=== PATIENT | male | born 1955 | race Two or more races ===

== ENCOUNTER 2017-06-25 23:53 | Inpatient (IN) | payer MEDICAID, OTHER ==
[~2017-06-25] VITALS: Ht 167.6 cm; Wt 81.0 kg
[2017-06-26] VITALS (8 sets, daily range): BP systolic 109–136; BP diastolic 62–82; PULSE 71–85; RESP 18–21; TEMP 98; Ht 167.6 cm; Wt 81.0 kg
[2017-06-26] MEDS ORDERED: ONDANSETRON 4 MG INJ IV STA (00:56)
[2017-06-26] MEDS ORDERED: morphine 4 MG/ML VIAL IV STA (00:56)
[2017-06-26 01:18] LABS: BASOPHIL # 0.1 10^3/ul (0.0-0.1); EOSINOPHILS # 0.5 10^3/ul (0.0-0.5); EOSINOPHILS % 4.7 % (0.0-7.0); HEMATOCRIT 44.3 % (42.0-52.0); HEMOGLOBIN 14.7 g/dl (14.0-18.0); LYMPHOCYTES # 3.6 10^3/ul (0.8-2.9); LYMPHOCYTES % 33.6 % (15.0-51.0); MEAN CORPUSCULAR HEMOGLOBIN 30.1 pg (29.0-33.0); MEAN CORPUSCULAR HGB CONC 33.2 g/dl (32.0-37.0); MEAN CORPUSCULAR VOLUME 90.6 fl (82.0-101.0); MONOCYTE # 0.9 10^3/ul (0.3-0.9); MONOCYTES % 7.9 % (0.0-11.0); NEUTROPHILS % 52.6 % (39.0-77.0); PLATELET COUNT 219 10^3/UL (140-415); RED BLOOD COUNT 4.89 10^6/ul (4.70-6.10); RED CELL DISTRIBUTION WIDTH 11.9 % (11.5-14.5); WHITE BLOOD COUNT 10.8 10^3/ul (4.8-10.8)
[2017-06-26 01:32] LABS: INR 0.87; PROTIME 11.8 Sec (12.2-14.2); PT RATIO 0.9
[2017-06-26 01:33] LABS: PARTIAL THROMBOPLASTIN TIME 26.3 Sec (25.0-35.0)
[2017-06-26 01:41] LABS: ALANINE AMINOTRANSFERASE 25 IU/L (13-69); ALBUMIN 4.2 g/dl (3.3-4.9); ALBUMIN/GLOBULIN RATIO 1.27; ALKALINE PHOSPHATASE 57 IU/L (42-121); ANION GAP 20 (8-16); ASPARTATE AMINO TRANSFERASE 18 IU/L (15-46); BILIRUBIN,INDIRECT 0.1 mg/dl (0-1.1); BILIRUBIN,TOTAL 0.1 mg/dl (0.2-1.3); BLOOD UREA NITROGEN 19 mg/dl (7-20); CALCIUM 9.5 mg/dl (8.4-10.2); CARBON DIOXIDE 24 mmol/L (21-31); CHLORIDE 102 mmol/L (97-110); GLUCOSE 102 mg/dl (70-220); POTASSIUM 4.4 mmol/L (3.5-5.1); SODIUM 142 mmol/L (135-144); TOTAL PROTEIN 7.5 g/dl (6.1-8.1)
[2017-06-26 01:52] LABS: B-TYPE NATRIURETIC PEPTIDE 46 PG/ML (0-125)
--- NOTE | 2017-06-26 02:02 | RADRPT ---
PROCEDURE: XR Chest. CLINICAL INDICATION: Chest pain TECHNIQUE: AP Portable chest. COMPARISON: No pertinent prior examinations were submitted for comparison. FINDINGS: There is mild cardiomegaly. There is mild atelectasis at the left lung base. The osseous structure s are unremarkable. IMPRESSION: Mild atelectasis at the left lung base. RPTAT: HIKT .Felix Lyons MD, MD Date Time Electronically viewed and signed by .Felix Lyons MD, MD on 06/26/2017 02:01 .T/
[2017-06-26 02:03] LABS: TROPONIN-I < 0.012 ng/ml (0.00-0.12)
[2017-06-26] MEDS: HYDROCODONE/APAP (5/325) TAB PO PRN ×2 (04:50→22:46)
--- NOTE | 2017-06-26 05:28 | HP ---
Date/Time of Note Date/Time of Note DATE: 06/26/17 TIME: 05:22 Assessment/Plan VTE Prophylaxis VTE Prophylaxis Intervention: SCD's Lines/Catheters IV Catheter Type (from Nrsg): Peripheral IV Assessment/Plan Assessment/Plan 61 yo M with intermittent CP x 5 days 1. Chest Pain r/o ACS 2. Tobacco abuse 3. Chronic HTN 4. low back pain with R thigh numbness 5. Significant family hx of fatal [place] PLAN: Telemetry admission, trend cardiac enzymes, 2d echo if none recently and possible cardiology consult for stress test. oxygen and nitroglycerin therapy as needed. Daily aspirin if no allergy or bleeding risk. Get lipid profile, magnesium and TSH levels in am. We will get lumbar x-ray of his back, physical therapy eval, pain control. Further interventions per clinical course Plan of care has been discussed with patient in detail, questions have been answered, patient has verbalized understanding. Prophylaxis: SCDs, H2 jocy HPI/ROS Admit Date/Time Admit Date/Time 06/26/17 Hx of Present Illness Mr. Espinoza is a pleasant 61-year-old male who presents to us with a 5 day history of chest pain which has been intermittent. The pain worsened earlier today and hence he decided to come to the emergency room. The patient is a chronic smoker for more than 40 years, and does have significant history of heart disease. For these reasons he is being admitted for ACS rule out. He denies cough, denies fever. His only other complaint is low back pain. His back pain seems musculoskeletal and is located in his lumbar region but he does report is shooting down his right thigh and he has a little bit of numbness in his mid thigh area. I explained to the patient that the location of his pain and the location of his neurologic findings are not consistent however patient is requesting a workup for his back pain as well. ROS 12 point review if systems was done and pertinent findings are as noted. PMH/Family/Social Past Medical History Medical History: hypertension (patient has been told in the past he has HTN, but does not take meds regularly and BP is usually fine) Past Surgical History * Hemorrhoidectomy Family History Significant Family History: heart disease (Mother from [place] in 50s) Social History Alcohol Use: none Smoking Status: Current every day smoker Drug Use: none Exam/Review of Systems Vital Signs Vitals VS - Last 72 Hours, by Label Date Time Temp Pulse Resp B/P Pulse Ox O2 Delivery O2 Flow Rate FiO2 06/26/17 02:12 98.2 80 16 135/84 98 Nasal Cannula 2.0 06/26/17 01:24 Nasal Cannula 2 06/25/17 23:59 98.2 97 18 164/98 98 Vital Signs Date Time Temp Pulse Resp B/P Pulse Ox O2 Delivery O2 Flow Rate FiO2 06/26/17 02:12 98.2 80 16 135/84 98 Nasal Cannula 2.0 Exam Exam GENERAL: Patient is alert, oriented x 3, in no apparent distress; does not appear acutely or chronically ill. Patient is able to sit up unassisted.Patient makes good eye contact, is conversant, interactive, coherent. Patient appears calm and comfortable and is able to follow commands. HEENT: Oropharynx is clear. There is no carotid bruit, no masses. Patient's pupils are equal, round and reactive to light bilaterally. Extraocular motions are intact. There is no scleral icterus. There is no facial asymmetry. NECK: Supple. LUNGS: Clear to auscultation bilaterally with good air entry. No Wheezes or crackles. HEART: S1, S2. No murmur, gallops or rubs. Regular rate and rhythm. ABDOMEN: Soft, nontender. Normoactive bowel sounds. There are no stigmata of chronic liver disease. BACK: no costovertebral angle tenderness. GENITOURINARY: Deferred. EXTREMITIES: No edema. There is no cyanosis, clubbing. There are 2+ pulses bilaterally distally. NEUROLOGIC: The patient has no lateralizing signs. Cranial nerves II-XII are intact. SKIN: Otherwise, unremarkable. Labs Result Diagram: 06/26/17 0045 06/26/17 0045 Medications Medications Current Medications Acetaminophen/ Hydrocodone Bitart ([place] (5/325)) 1 tab Q6 PRN PO PAIN Last administered on 06/26/17t 04:50; Admin Dose 1 TAB; Start 06/26/17 at 05:00 ARIANNE OVALLES Jun 26, 2017 05:28
--- NOTE | 2017-06-26 05:44 | ERA ---
ER Documentation Chief Complaint Date/Time DATE: 06/26/17 TIME: 05:43 Chief Complaint LT SIDE NON RADIATING CP + SHORTNESS OF BREATH X3 DAYS. WORSE TONIGHT HPI This is a 61-year-old male, left-sided operating chest pain with shortness breath for 3 days. Patient the pain is mild to moderate intensity has been getting worse progressively and is worse tonight. No fevers no chills. No other current complaints. ROS All systems reviewed and are negative except as per history of present illness. Allergies Allergies: Coded Allergies: No Known Allergy (Unverified , 06/26/17) PMhx/Soc History of Surgery: Yes (HEMORRHOIDECTOMY) Hx Cardiac Disorders: Yes (HTN) Hx Alcohol Use: No Hx Substance Use: No Hx Tobacco Use: No Smoking Status: Current every day smoker Physical Exam Vitals Vital Signs Date Time Temp Pulse Resp B/P Pulse Ox O2 Delivery O2 Flow Rate FiO2 06/26/17 05:24 73 17 125/81 96 Nasal Cannula 2.0 06/26/17 02:12 98.2 80 16 135/84 98 Nasal Cannula 2.0 06/26/17 01:24 Nasal Cannula 2 06/25/17 23:59 98.2 97 18 164/98 98 Physical Exam Const: [] Head: Atraumatic Eyes: Normal Conjunctiva ENT: Normal External Ears, Nose and Mouth. Neck: Full range of motion..~ No meningismus. Resp: Clear to auscultation bilaterally Cardio: Regular rate and rhythm, no murmurs Abd: Soft, non tender, non distended. Normal bowel sounds Skin: No petechiae or rashes Back: No midline or flank tenderness Ext: No cyanosis, or edema Neur: Awake and alert Psych: Normal Mood and Affect Result Diagram: 06/26/17 0045 06/26/17 0045 Results 24 hrs Laboratory Tests Test 06/26/17 00:45 White Blood Count 10.810^3/ul Red Blood Count 4.8910^6/ul Hemoglobin 14.7g/dl Hematocrit 44.3% Mean Corpuscular Volume 90.6fl Mean Corpuscular Hemoglobin 30.1pg Mean Corpuscular Hemoglobin Concent 33.2g/dl Red Cell Distribution Width 11.9% Platelet Count 69859^3/UL Mean Platelet Volume 10.0fl Neutrophils % 52.6% Lymphocytes % 33.6% Monocytes % 7.9% Eosinophils % 4.7% Basophils % 1.0% Nucleated Red Blood Cells % 0.0/100WBC Neutrophils # (Manual) 610^3/ul Lymphocytes # 3.610^3/ul Monocytes # 0.910^3/ul Eosinophils # 0.510^3/ul Basophils # 0.110^3/ul Nucleated Red Blood Cells # 0.010^3/ul Prothrombin Time 11.8Sec Prothrombin Time Ratio 0.9 INR International Normalized Ratio 0.87 Activated Partial Thromboplast Time 26.3Sec Sodium Level 142mmol/L Potassium Level 4.4mmol/L Chloride Level 102mmol/L Carbon Dioxide Level 24mmol/L Anion Gap 20 Blood Urea Nitrogen 19mg/dl Creatinine 1.20mg/dl Glucose Level 102mg/dl Calcium Level 9.5mg/dl Total Bilirubin 0.1mg/dl Direct Bilirubin 0.00mg/dl Indirect Bilirubin 0.1mg/dl Aspartate Amino Transf (AST/SGOT) 18IU/L Alanine Aminotransferase (ALT/SGPT) 25IU/L Alkaline Phosphatase 57IU/L Troponin I < 0.012ng/ml B-Type Natriuretic Peptide 46PG/ML Total Protein 7.5g/dl Albumin 4.2g/dl Globulin 3.30g/dl Albumin/Globulin Ratio 1.27 Current Medications Medications (Trade) Dose Ordered Sig/[place] Route PRN Reason Start Time Stop Time Status Last Admin Dose Admin Morphine Sulfate (morphine) 4 mg ONCE STAT IV 06/26/17 00:56 06/26/17 00:57 DC 06/26/17 01:00 Ondansetron HCl (Zofran Inj) 4 mg ONCE STAT IV 06/26/17 00:56 06/26/17 00:57 DC 06/26/17 01:00 Acetaminophen/ Hydrocodone Bitart ([place] (5/325)) 1 tab Q6 PRN PO PAIN 06/26/17 05:00 06/26/17 04:50 Procedures/MDM EKG: Rate/Rhythm: Normal Sinus Rhythm QRS, ST, T-waves: No changes consistent w/ acute ischemia Impression: No evidence of ischemia or arrhythmia Chest X-ray 1V Interpreted by me: Soft Tissue: No acute abnormalities Bones: No acute abnormalities Mediastinum/Cardiac Silhouette/Lungs: No acute abnormalities Patient's symptoms are concerning for cardiac cause will require inpatient workup and continuous monitoring. Further w/u for ischemia, arrhythmia, PE or dissection will be deferred to the inpatient team. Accepting Care Team: Current data and ongoing care discussed. Time: 2 AM Primary Provider: Hospitalist Consulting: [RODNEY] Outstanding Data: none Departure Diagnosis: Primary Impression: Chest pain Qualified Code: R07.9 - Chest pain, unspecified type Condition: Serious HELENA COMBS Jun 26, 2017 05:44
[2017-06-26 06:30] LABS: CREATINE KINASE 66 IU/L (23-200)
[2017-06-26 06:44] LABS: CK-MB 0.88 ng/ml (0.0-2.4); TROPONIN-I < 0.012 ng/ml (0.00-0.12)
--- NOTE | 2017-06-26 09:25 | RADRPT ---
PROCEDURE: XR Lumbar Spine. CLINICAL INDICATION: back pain TECHNIQUE: AP, lateral and cone-down lateral view of the lumbar spine were obtained. COMPARISON: No prior studies are available for comparison. FINDINGS: There is mild vertebral spondylosis. There is normal vertebral mineralization and alignment. No acute fracture. There is a 3 mm anterolisthesis of L5 on S1. The disc spaces are normal in appearance. The posterior elements are unremarkable. The abdominal aorta is calcified. RPTAT: AA IMPRESSION: Mild vertebral spondylosis. Grade 1 anterolisthesis of L5 on S1. .Shun Coburn MD, Date Time Electronically viewed and signed by .Shun Coburn MD, on 06/26/2017 09:25 .S/
[2017-06-26] MEDS ORDERED: NITROGLYCERIN (SL) 0.4 MG TAB SL PRN (10:30)
[2017-06-26 12:57] LABS: ALBUMIN 4.3 g/dl (3.3-4.9); BILIRUBIN,INDIRECT 0.1 mg/dl (0-1.1); BILIRUBIN,TOTAL 0.1 mg/dl (0.2-1.3); MAGNESIUM 1.9 mg/dl (1.7-2.5); PHOSPHORUS 4.1 mg/dl (2.5-4.9); TOTAL PROTEIN 7.5 g/dl (6.1-8.1)
--- NOTE | 2017-06-26 13:15 | CONS ---
Date/Time of Note Date/Time of Note DATE: 06/26/17 TIME: 13:09 Assessment/Plan Assessment/Plan Chief Complaint/Hosp Course Chest pain/unstable angina: Pt has baseline exertional angina with progression to rest symptoms over the past two days. Though trops are negative, there is still concern for ACS and cardiac cath is warranted without stress testing to avoid false negatives. Pt is agreeable to cardiac cath. HTN: At home apparently up to 170, likely contributing to above. Controlled here HL -cardiac cath tomorrow at 7:30am -NPO after midnight -ASA, lipitor, metoprolol -NTG PRN -if ongoing chest pain or positive trops, start heparin drip Problems: Consultation Date/Type/Reason Admit Date/Time 06/26/17 Date of Consultation: Jun 26, 2017 Type of Consultation: Cardiology Reason for Consultation Chest pain Referring Provider: ARIANNE OVALLES Hx of Present Illness 61 yo M with a h/o HTN, HL, active tobacco abuse, who presented with chest pain. The pt notes that over the past 3 days he has been having worsening chest pain which he describes as substernal, pressure-like, and associated with diaphoresis. His BP has also been as high as 170s. He has a long standing h/o HTN but rarely takes meds and tries homeopathic remedies. He is not very active but does also have mild chest pain with exertion especially going up the stairs. His mother of an [place] in her early 50s. He has been smoking 1-2 ppd for 40+ yrs. Currently chest pain free. per HPI, otherwise negative Past Medical History HTN, HL Medical History: hypertension (patient has been told in the past he has HTN, but does not take meds regularly and BP is usually fine) Social History Alcohol Use: occasionally Smoking Status: Current every day smoker Drug Use: none Exam/Review of Systems Vital Signs Vitals Vital Signs Date Time Temp Pulse Resp B/P Pulse Ox O2 Delivery O2 Flow Rate FiO2 06/26/17 13:04 81 108/73 06/26/17 12:41 20 98 Nasal Cannula 2.0 06/26/17 07:00 98.0 Exam Constitutional: alert, oriented Psych: no complaints Head: atraumatic, normocephalic Eyes: nl conjunctiva ENMT: nl external ears & nose Neck: No jvd Respiratory: clear to auscultation, diminished breath sounds, No crackles/rales Cardiovascular: regular rate and rhythm, No edema, No systolic murmur Gastrointestinal: non-tender, soft, No distended Musculoskeletal: nl extremities to inspection Extremities: normal pulses Neurological: nl mental status Skin: No rash or lesions Results sinus, PVCs, no ST changes Result Diagram: 06/26/17 0045 06/26/17 0045 Results 24 hrs Laboratory Tests Test 06/26/17 00:45 06/26/17 05:45 06/26/17 09:45 White Blood Count 10.8 Red Blood Count 4.89 Hemoglobin 14.7 Hematocrit 44.3 Mean Corpuscular Volume 90.6 Mean Corpuscular Hemoglobin 30.1 Mean Corpuscular Hemoglobin Concent 33.2 Red Cell Distribution Width 11.9 Platelet Count 219 Mean Platelet Volume 10.0 Neutrophils % 52.6 Lymphocytes % 33.6 Monocytes % 7.9 Eosinophils % 4.7 Basophils % 1.0 Nucleated Red Blood Cells % 0.0 Neutrophils # (Manual) 6 Lymphocytes # 3.6 H Monocytes # 0.9 Eosinophils # 0.5 Basophils # 0.1 Nucleated Red Blood Cells # 0.0 Prothrombin Time 11.8 L Prothrombin Time Ratio 0.9 INR International Normalized Ratio 0.87 Activated Partial Thromboplast Time 26.3 Sodium Level 142 Potassium Level 4.4 Chloride Level 102 Carbon Dioxide Level 24 Anion Gap 20 H Blood Urea Nitrogen 19 Creatinine 1.20 Glucose Level 102 Calcium Level 9.5 Total Bilirubin 0.1 L 0.1 L Direct Bilirubin 0.00 0.00 Indirect Bilirubin 0.1 0.1 Aspartate Amino Transf (AST/SGOT) 18 19 Alanine Aminotransferase (ALT/SGPT) 25 31 Alkaline Phosphatase 57 57 Troponin I < 0.012 < 0.012 B-Type Natriuretic Peptide 46 Total Protein 7.5 7.5 Albumin 4.2 4.3 Globulin 3.30 H Albumin/Globulin Ratio 1.27 Creatine Kinase 66 Creatine Kinase Index 1.3 Creatinine Kinase MB (Mass) 0.88 Hemoglobin A1c 6.4 H Phosphorus Level 4.1 Magnesium Level 1.9 Triglycerides Level 271 H Cholesterol Level 212 H LDL Cholesterol, Calculated 128 HDL Cholesterol 30 Cholesterol/HDL Ratio 7.0 Thyroid Stimulating Hormone (TSH) Pending Medications Medications Current Medications Acetaminophen/ Hydrocodone Bitart ([place] (5/325)) 1 tab Q6 PRN PO PAIN Last administered on 06/26/17 04:50; Admin Dose 1 TAB; Start 06/26/17 at 05:00 Aspirin (Aspirin) 81 mg DAILY PO ; Start 06/27/17 at 09:00 Nitroglycerin (Nitroglycerin (Sl Tab) 0.4 Mg) 1 tab Q5M PRN SL ANGINA Last administered on 06/26/17 12:49; Admin Dose 1 TAB; Start 06/26/17 at 10:30 Morphine Sulfate (morphine) 2 mg Q4H PRN IV pain; Start 06/26/17 at 10:30 Heparin Sodium (Porcine) (Heparin (5000 Units/0.5 ml)) 5,000 unit BID SC ; Start 06/26/17 at 21:00 JUANA DYKES Jun 26, 2017 13:15
--- NOTE | 2017-06-26 13:23 | QN ---
Documentation Comment Examined patient in ER room 9. Patient with on and off chest pain. Troponin has been negative. However, we are going to proceed with a cardiology evaluation as patient has multiple high risk factors and typical chest pain syndrome which he is describing now. Will start patient on aspirin, nitroglycerin sublingual PRN and morphine with serial troponin and telemetry monitoring. Reviewed spinal x-ray studies with patient and recommended outpatient neurosurgery evaluation after cardiac workup is completed. Not, patient does not have any worsening neuro symptoms requiring an inpatient neurosurgical evaluation at moment. Patient also in agreement for outpatient neurosurgery referral. Case discussed with ALEJANDRA Lunsford NP Jun 26, 2017 13:23
[2017-06-26 13:26] LABS: THYROID STIMULATING HORMONE 4.82 MIU/L (0.465-4.680)
[2017-06-26] MEDS: METOPROLOL 25 MG TAB PO SCH ×2 (13:30→21:45)
[2017-06-26 13:32] LABS: CREATINE KINASE 62 IU/L (23-200)
[2017-06-26] MEDS: ASPIRIN 81 MG TAB PO SCH (13:36)
[2017-06-26 13:48] LABS: TROPONIN-I < 0.012 ng/ml (0.00-0.12)
--- NOTE | 2017-06-26 15:19 | RADRPT ---
Echocardiogram Report Patient Name: STEPHANIE HAIRSTON Gender: Male Date: 1955 Study Date: 26-Jun-2017 A Auxiliary: [place] Location: ER9 Ref. Physician: ARIANNE OVALLES Quality: Technically Difficult Study Procedures: Transthoracic echocardiogram with complete 2D, M-Mode, and doppler examination. Indications: Chest Pain. 2D/M Mode Doppler Measurement Value Normal Ranges Measurement Value Normal Ranges LVIDd 2D 4.6 3.5 - 5.6 cm AV Peak Barber 1.4 m/sec LVIDs 2D 2.6 2.1 - 4.1 cm AV Peak PG 7.5 mmHg LVPWd 2D 1.0 0.6 - 1.1 cm LVOT Peak Barber 1.0 m/sec IVSd 2D 1.0 0.6 - 1.1 cm LVOT Peak PG 4.2 mmHg AoR Diam 2D 2.8 2.0 - 3.7 cm MV E Peak Barber 0.5 m/sec EDV 2D 97.7 cm3 MV A Peak Barber 0.7 m/sec ESV 2D 17.4 cm3 MV E/A 0.7 LA Dimen 2D 3.5 2.3 - 4.0 cm MV Decel Time 160 msec MV Decel [place] 3 MV E/A 0.7 TR Peak Barber 2.2 m/sec TR Peak PG 18.6 mmHg RVSP 22.0 mmHg Findings Left Ventricle: Normal left ventricular systolic function. Normal left ventricular cavity size. Normal left ventricular wall thickness. Ejection fraction is visually estimated at 65 %. Tissue Doppler/Mitral Doppler indices are consistent with impaired relaxation (Stage I diastolic dysfunction). Resting Segmental Wall Motion Analysis: Possible mild hypokinesis of the anterior wall though not well seen. Right Ventricle: Normal right ventricular size. Normal right ventricular systolic function. Left Atrium: The left atrium is normal in size. Right Atrium: The right atrium is normal in size. Mitral Valve: Mitral valve leaflets appear mildly thickened. No mitral valve regurgitation is seen. Aortic Valve: Normal appearance of the aortic valve. No significant aortic stenosis or insufficiency. Tricuspid Valve: Normal appearance of the tricuspid valve. Estimated peak PA systolic pressure 22 mmHg. There is trace tricuspid regurgitation. Pulmonic Valve: Pulmonic valve not well visualized. Pericardium: Normal pericardium with no significant pericardial effusion. Aorta: Normal aortic root. IVC: Normal size and normal respiratory collapse consistent with normal right atrial pressure. Conclusions 1.Poor endocardial visualization in some views. 2.Normal left ventricular systolic function. Normal left ventricular cavity size. Normal left ventricular wall thickness. Ejection fraction is visually estimated at 65 %. Tissue Doppler/Mitral Doppler indices are consistent with impaired relaxation (Stage I diastolic dysfunction). Possible mild hypokinesis of the anterior wall though not well seen. 3.No significant valvular stenosis or regurgitation seen. 4.Estimated peak PA systolic pressure 22 mmHg based on RA pressure of 3 mmHg. Electronically Signed By: Nael Sam 26-Jun-2017 15:18:46 -0700 Patient Name: STEPHANIE HAIRSTON Study Date: 26-Jun-2017 [id number]
[2017-06-26] MEDS: HEPARIN 5,000 UNIT/0.5 ML VIAL SC SCH (21:46)
[2017-06-26] MEDS: ATORVASTATIN 40 MG TAB PO SCH (21:56)
[2017-06-27] VITALS (20 sets, daily range): BP systolic 108–145; BP diastolic 56–91; PULSE 60–77; RESP 12–22
[2017-06-27] MEDS ORDERED: NITROGLYCERIN (IC) 100 MCG/ML INJ ONE (06:52)
[2017-06-27] MEDS ORDERED: VERAPAMIL 5 MG INJ ONE (06:52)
[2017-06-27] MEDS ORDERED: MIDAZOLAM 1 MG/ML 2 ML INJ ONE (06:52)
[2017-06-27] MEDS ORDERED: IODIXANOL LOCM 100 ML BTL ONE ×2 (06:52→08:03)
[2017-06-27] MEDS ORDERED: FENTAnyl 50 MCG/ML VIAL ONE (06:52)
[2017-06-27] MEDS ORDERED: HEPARIN 1000 UNITS/ML 10 ML INJ ONE (06:52)
[2017-06-27] MEDS ORDERED: LIDOCAINE 1% (MDV) 20 ML INJ ONE (06:52)
[2017-06-27] MEDS ORDERED: SOD CHLORIDE 0.9% 1,000 ML IV SCH (08:31)
--- NOTE | 2017-06-27 08:35 | CONS ---
Date/Time of Note Date/Time of Note DATE: 06/27/17 TIME: 08:32 Assessment/Plan Assessment/Plan Chief Complaint/Hosp Course Chest pain/unstable angina: s/p cardiac cath 06/27 with negative iFR of intermediate OM lesion. Otherwise nonobstructive CAD HTN: At home apparently up to 170, likely contributing to above. Controlled here HL Tobacco use: counseled on cessation -ok for d/c after 4 hours of observation post cath. Can go home ~1 pm today -ASA, lipitor on discharge -urged tobacco cessation Problems: Consultation Date/Type/Reason Admit Date/Time Jun 26, 2017 at 02:43 Initial Consult Date 06/26/17 Type of Consultation: Cardiology Referring Provider: ARIANNE OVALLES 24 HR Interval Summary Free Text/Dictation No o/n events. S/p cath this am Exam/Review of Systems Vital Signs Vitals Vital Signs Date Time Temp Pulse Resp B/P Pulse Ox O2 Delivery O2 Flow Rate FiO2 06/27/17 04:02 60 06/27/17 03:59 98.3 19 108/56 95 06/26/17 21:54 Room Air 06/26/17 14:21 2.0 Exam Constitutional: alert, oriented Psych: no complaints Head: atraumatic, normocephalic Neck: No jvd Respiratory: clear to auscultation, No crackles/rales Cardiovascular: regular rate and rhythm, No edema Gastrointestinal: non-tender, soft Neurological: nl mental status, nl speech Results Result Diagram: 06/26/17 0045 06/26/17 0045 Results 24 hrs Laboratory Tests Test 06/26/17 09:45 06/26/17 13:00 Hemoglobin A1c 6.4 H Phosphorus Level 4.1 Magnesium Level 1.9 Total Bilirubin 0.1 L Direct Bilirubin 0.00 Indirect Bilirubin 0.1 Aspartate Amino Transf (AST/SGOT) 19 Alanine Aminotransferase (ALT/SGPT) 31 Alkaline Phosphatase 57 Total Protein 7.5 Albumin 4.3 Triglycerides Level 271 H Cholesterol Level 212 H LDL Cholesterol, Calculated 128 HDL Cholesterol 30 Cholesterol/HDL Ratio 7.0 Thyroid Stimulating Hormone (TSH) 4.820 H Creatine Kinase 62 Creatine Kinase Index 1.3 Creatinine Kinase MB (Mass) 0.80 Troponin I < 0.012 Medications Medications Current Medications Acetaminophen/ Hydrocodone Bitart ([place] (5/325)) 1 tab Q6 PRN PO PAIN Last administered on 06/26/17 22:46; Admin Dose 1 TAB; Start 06/26/17 at 05:00 Nitroglycerin (Nitroglycerin (Sl Tab) 0.4 Mg) 1 tab Q5M PRN SL ANGINA Last administered on 06/26/17 12:49; Admin Dose 1 TAB; Start 06/26/17 at 10:30 Morphine Sulfate (morphine) 2 mg Q4H PRN IV pain; Start 06/26/17 at 10:30 Heparin Sodium (Porcine) (Heparin (5000 Units/0.5 ml)) 5,000 unit BID SC Last administered on 06/26/17 21:46; Admin Dose 5,000 UNIT; Start 06/26/17 at 21:00 Aspirin (Aspirin) 81 mg DAILY PO Last administered on 06/26/17 13:36; Admin Dose 81 MG; Start 06/26/17 at 13:30 Metoprolol Tartrate (Lopressor) 25 mg BID PO Last administered on 06/26/17 21: 45; Admin Dose 25 MG; Start 06/26/17 at 13:30 Atorvastatin Calcium (Lipitor) 40 mg QHS PO Last administered on 06/26/17 21: 56; Admin Dose 40 MG; Start 06/26/17 at 21:00 JUANA DYKES Jun 27, 2017 08:35
[2017-06-27] MEDS ORDERED: morphine 2 MG INJ IV PRN (08:42)
--- NOTE | 2017-06-27 08:42 | OPR ---
Date/Time of Note Date/Time of Note DATE: 06/27/17 TIME: 08:35 Operative Report Free Text/Dictation Procedure Date:06/27/2017 Procedures Performed: 1)Left heart catheterization with selective left and right coronary angiography. 2)Left ventricle angiography 3)Negative iFR (0.97) of intermediate OM lesion Pre-operative Diagnosis:unstable angina Post-operative Diagnosis:same, negative iFR Indications:61 yo M smoker with HTN, HL, with rest angina concerning for unstable angina Description of Procedure: After informed consent, the patient was brought to the cardiac catheterization lab. The procedure site was prepped and draped in usual manner. The patient was premedicated with versed 2mg and fentanyl 100 mcg. mL lidocaine was injected into the right wrist. Next using the posterior wall technique, the 6/ 5 faroese sheath was inserted into the right radial artery. Next using the JL3.5 and JR4, selective angiography of the left and right coronary arteries were obtained. The pigtail was then advanced into the ventricle and hemodynamics obtained. Left ventricle angiography was obtained. The decision was made to proceed with iFR of the intermediate OM lesion. A 6 faroese JL 3 guide was advanced and engaged into the left coronary artery. After appropriate anticoagulation with heparin, the iFR wire was advanced proximal to the lesion and equalized. Next it was advanced past the lesion and measurements obtained. As the result was negative, all equipment was removed. Final angiography showed unchanged anatomy. Next all equipment was removed (with difficulty due to spasm) and hemostasis was achieved by TR band. 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
[2017-06-27] MEDS ORDERED: ONDANSETRON 4 MG INJ IV PRN (09:00)
[2017-06-27] MEDS ORDERED: ASPIRIN 81 MG TAB PO SCH (09:00)
[2017-06-27] MEDS: HEPARIN 5,000 UNIT/0.5 ML VIAL SC SCH ×2 (09:00→21:29)
[2017-06-27 09:08] LABS: BASOPHIL # 0.1 10^3/ul (0.0-0.1); BASOPHILS % 1.1 % (0.0-2.0); EOSINOPHILS # 0.5 10^3/ul (0.0-0.5); EOSINOPHILS % 6.2 % (0.0-7.0); HEMATOCRIT 42.1 % (42.0-52.0); HEMOGLOBIN 13.6 g/dl (14.0-18.0); LYMPHOCYTES # 3.3 10^3/ul (0.8-2.9); MEAN CORPUSCULAR HEMOGLOBIN 29.5 pg (29.0-33.0); MEAN CORPUSCULAR HGB CONC 32.3 g/dl (32.0-37.0); MEAN CORPUSCULAR VOLUME 91.3 fl (82.0-101.0); MEAN PLATELET VOLUME 10.4 fl (7.4-10.4); MONOCYTE # 0.7 10^3/ul (0.3-0.9); MONOCYTES % 9.1 % (0.0-11.0); NEUTROPHILS % 39.5 % (39.0-77.0); PLATELET COUNT 198 10^3/UL (140-415); RED BLOOD COUNT 4.61 10^6/ul (4.70-6.10); RED CELL DISTRIBUTION WIDTH 12.1 % (11.5-14.5); WHITE BLOOD COUNT 7.4 10^3/ul (4.8-10.8)
[2017-06-27 09:17] LABS: CALCIUM 9.6 mg/dl (8.4-10.2); CREATININE 1.15 mg/dl (0.61-1.24); POTASSIUM 4.4 mmol/L (3.5-5.1)
[2017-06-27] MEDS: HYDROCODONE/APAP (5/325) TAB PO PRN (09:37)
[2017-06-27] MEDS: METOPROLOL 25 MG TAB PO SCH ×2 (09:37→21:25)
[2017-06-27] MEDS: ASPIRIN 81 MG TAB PO SCH (09:37)
--- NOTE | 2017-06-27 12:01 | PDOCDIS ---
Discharge Instructions CONDITION Patient Condition: Stable HOME CARE INSTRUCTIONS: Your diet recommendation is: CARBOHYDRATE-CONTROLLED /LOW CHOLESTEROL,LOW FAT DIET FOLLOW UP/APPOINTMENTS Follow-up Plan 1.Follow up with primary care physician in 1 week-NEEDS TO REPEAT THYROID TESTS IN 2-4 WEEKS If you don't have one please let someone know, we can give you resources that may help you pick one. You may also call your insurance company to assign one to you. Review your medication list with your nurse before leaving and if you need new prescriptions please let your nurse know. I may have made changes to your home medications or given you new prescriptions, please let your primary doctor know as well. Stay compliant with your medications and report any side effects to your PCP or pharmacist. Return to the ER if you have any concerns and cannot reach your doctors or call your insurance company, they usually have a nurse that can help you. 2. Call 911 or go to the nearest emergency room if experiencing loss of consciousness, dizziness, chest pain, shortness of breath, vomiting/abdominal pain, speech difficulties, motor weakness or any unusual symptoms. ALEJANDRA CRESPO NP Jun 27, 2017 12:01
[2017-06-27] MEDS ORDERED: METF1000 PO (12:07)
[2017-06-27] MEDS ORDERED: ASPI81TA3 PO (12:07)
[2017-06-27] MEDS ORDERED: ATOR40TA68 PO (12:07)
[2017-06-27] MEDS ORDERED: HYDR-906 PO (12:07)
[2017-06-27] MEDS ORDERED: METO-448 PO (12:07)
[2017-06-27] MEDS: morphine 2 MG INJ IV PRN ×2 (12:22→21:39)
--- NOTE | 2017-06-27 13:29 | PN ---
Date/Time of Note Date/Time of Note DATE: 06/27/17 TIME: 13:23 Assessment/Plan VTE Prophylaxis VTE Prophylaxis Intervention: heparin Lines/Catheters IV Catheter Type (from Nrs): Peripheral IV Urinary Cath still in place: No Assessment/Plan Chief Complaint/Hosp Course 1. Chest pain, likely musculoskeletal. ACS ruled out. -Pain control as needed 2. Nonobstructive CAD -Continue aspirin and statin. 3. Essential HTN. Now stable. -Continue metoprolol 4. Dyslipidemia -On statin 5. Prediabetes. A1c 6.4. -Based on risk factors, metformin is recommended on discharge. 6.Tobacco use -Cessation advised 7. Elevated TSH -Obtain free T4 and recommended repeat labs in 4 weeks as outpatient and start treatment if indicated. 8. Degenerative joint disease of lumbar spine. No disc protrusion or prolapse. -Pain control as needed. Recommend outpatient neurosurgery evaluation if patient experiences any neurological symptoms. Plan: Keep patient overnight in house. If pain is controlled, discharge planning in a.m. Case discussed with Dr. Ferro. Problems: Subjective 24 Hr Interval Summary Free Text/Dictation Status post cardiac catheterization. Doing well. Exam/Review of Systems Vital Signs Vitals Vital Signs Date Time Temp Pulse Resp B/P Pulse Ox O2 Delivery O2 Flow Rate FiO2 06/27/17 12:17 98.1 69 18 145/79 96 06/27/17 09:27 Room Air 06/26/17 14:21 2.0 Exam General: Well developed,adequately built, not in any acute distress . HEENT: Normocephalic, Atraumatic, No laceration or hematoma; Eyes: PEERL, Conjunctiva clear, Anicteric sclera Neck: Supple without any lymphadenopathy, nontender, no JVD, no carotid bruits, trachea midline, no thyromegaly Cardiac: S1, S2 auscultated, regular rhythm and rate, no mumurs or gallop Pulmonary: Normal respiratory effort. Chest clear to auscultation bilaterally, no adventitious breath sounds GI: Abdomen normal to inspection. Soft, non tender, non- distended, no masses, no rebound tenderness or guarding. Bowel sounds active on all four quadrants Genitourinary: Deferred Extremities: No cyanosis, clubbing, or edema. Pulses [2+] bilaterally. Full ROM on all four extremities. No focal weakness appreciated. Neurologic: Alert to person, place, time, and situation. Affect appropriate, intact sensation. Skin: Clean,dry, and intact. No ecchymosis, no rashes, or lesions Results Result Diagram: 06/27/17 0655 06/27/17 0655 Results 24 hrs Laboratory Tests Test 06/27/17 06:55 White Blood Count 7.4 # Red Blood Count 4.61 L Hemoglobin 13.6 L Hematocrit 42.1 Mean Corpuscular Volume 91.3 Mean Corpuscular Hemoglobin 29.5 Mean Corpuscular Hemoglobin Concent 32.3 Red Cell Distribution Width 12.1 Platelet Count 198 Mean Platelet Volume 10.4 Neutrophils % 39.5 Lymphocytes % 44.0 Monocytes % 9.1 Eosinophils % 6.2 Basophils % 1.1 Nucleated Red Blood Cells % 0.0 Neutrophils # (Manual) 3 Lymphocytes # 3.3 H Monocytes # 0.7 Eosinophils # 0.5 Basophils # 0.1 Nucleated Red Blood Cells # 0.0 Sodium Level 141 Potassium Level 4.4 Chloride Level 100 Carbon Dioxide Level 27 Anion Gap 18 H Blood Urea Nitrogen 22 H Creatinine 1.15 Glucose Level 95 Calcium Level 9.6 Free Thyroxine 0.85 Medications Medications Current Medications Acetaminophen/ Hydrocodone Bitart ([place] (5/325)) 1 tab Q6 PRN PO PAIN Last administered on 06/27/17 09:37; Admin Dose 1 TAB; Start 06/26/17 at 05:00 Nitroglycerin (Nitroglycerin (Sl Tab) 0.4 Mg) 1 tab Q5M PRN SL ANGINA Last administered on 06/26/17 12:49; Admin Dose 1 TAB; Start 06/26/17 at 10:30 Morphine Sulfate (morphine) 2 mg Q4H PRN IV pain Last administered on 12:22; Admin Dose 2 MG; Start 06/26/17 at 10:30 Heparin Sodium (Porcine) (Heparin (5000 Units/0.5 ml)) 5,000 unit BID SC Last administered on 06/26/17 21:46; Admin Dose 5,000 UNIT; Start 06/26/17 at 21:00 Aspirin (Aspirin) 81 mg DAILY PO Last administered on 06/27/17 09:37; Admin Dose 81 MG; Start 06/26/17 at 13:30 Metoprolol Tartrate (Lopressor) 25 mg BID PO Last administered on 06/27/17 09: 37; Admin Dose 25 MG; Start 06/26/17 at 13:30 Atorvastatin Calcium (Lipitor) 40 mg QHS PO Last administered on 06/26/17 21: 56; Admin Dose 40 MG; Start 06/26/17 at 21:00 Morphine Sulfate (morphine) 2 mg Q2H PRN IV FOR NON CARDIAC PAIN (4-10) Last administered on 06/27/17 08:53; Admin Dose 2 MG; Start 06/27/17 at 08:42 Ondansetron HCl 4 mg 4 mg Q4H PRN IV NAUSEA AND/OR VOMITING; Start 06/27/17 at 09:00 Sodium Chloride (NS) 1,000 ml @ 75 mls/hr [id number] IV ; Start 06/27/17 at 08:31 ; Stop 06/27/17 at 13:30 ALEJANDRA CRESPO NP Jun 27, 2017 13:29
[2017-06-27] MEDS ORDERED: FENTAnyl PATCH 50 MCG/HR TRANSDERM SCH (20:00)
[2017-06-27] MEDS: ATORVASTATIN 40 MG TAB PO SCH (21:25)
[2017-06-28] VITALS (7 sets, daily range): BP systolic 126–151; BP diastolic 77–90; PULSE 76–83; RESP 18–20
[2017-06-28] MEDS: ASPIRIN 81 MG TAB PO SCH (08:45)
[2017-06-28] MEDS: METOPROLOL 25 MG TAB PO SCH (08:45)
[2017-06-28] MEDS: HEPARIN 5,000 UNIT/0.5 ML VIAL SC SCH (08:53)
[2017-06-28 10:09] LABS: BASOPHIL # 0.1 10^3/ul (0.0-0.1); BASOPHILS % 0.9 % (0.0-2.0); EOSINOPHILS # 0.5 10^3/ul (0.0-0.5); EOSINOPHILS % 5.6 % (0.0-7.0); HEMATOCRIT 40.8 % (42.0-52.0); HEMOGLOBIN 13.7 g/dl (14.0-18.0); LYMPHOCYTES # 2.6 10^3/ul (0.8-2.9); LYMPHOCYTES % 31.7 % (15.0-51.0); MEAN CORPUSCULAR HEMOGLOBIN 29.9 pg (29.0-33.0); MEAN CORPUSCULAR HGB CONC 33.6 g/dl (32.0-37.0); MEAN CORPUSCULAR VOLUME 89.1 fl (82.0-101.0); MEAN PLATELET VOLUME 9.7 fl (7.4-10.4); MONOCYTE # 0.7 10^3/ul (0.3-0.9); MONOCYTES % 8.6 % (0.0-11.0); NEUTROPHILS % 53.1 % (39.0-77.0); PLATELET COUNT 190 10^3/UL (140-415); RED BLOOD COUNT 4.58 10^6/ul (4.70-6.10); RED CELL DISTRIBUTION WIDTH 11.9 % (11.5-14.5); WHITE BLOOD COUNT 8.1 10^3/ul (4.8-10.8)
[2017-06-28 10:47] LABS: CALCIUM 9.4 mg/dl (8.4-10.2); CREATININE 1.08 mg/dl (0.61-1.24); POTASSIUM 4.2 mmol/L (3.5-5.1)
[2017-06-28] MEDS ORDERED: CHOL100062 PO (11:12)
--- NOTE | 2017-06-28 11:24 | CONS ---
Date/Time of Note Date/Time of Note DATE: 06/28/17 TIME: 11:23 Assessment/Plan Assessment/Plan Chief Complaint/Hosp Course Chest pain/unstable angina: s/p cardiac cath 06/27 with negative iFR of intermediate OM lesion. Otherwise nonobstructive CAD HTN: At home apparently up to 170, likely contributing to above. Controlled here [place] Tobacco use: counseled on cessation -ok for d/c -ASA, lipitor on discharge -urged tobacco cessation Problems: Consultation Date/Type/Reason Admit Date/Time Jun 26, 2017 at 02:43 Initial Consult Date 06/26/17 Type of Consultation: Cardiology Referring Provider: ARIANNE OVALLES 24 HR Interval Summary Free Text/Dictation No o/n events. No chest pain. No complaints Exam/Review of Systems Vital Signs Vitals Vital Signs Date Time Temp Pulse Resp B/P Pulse Ox O2 Delivery O2 Flow Rate FiO2 06/28/17 08:31 77 06/28/17 08:04 96.6 20 151/90 98 06/27/17 09:27 Room Air 06/26/17 14:21 2.0 Intake and Output 06/27/17 06/27/17 06/28/17 15:00 23:00 07:00 Intake Total 350 ml 240 ml Balance 350 ml 240 ml Exam Constitutional: alert, oriented Psych: nl mood/affect, no complaints Head: atraumatic, normocephalic Neck: No jvd Respiratory: clear to auscultation, No crackles/rales, No diminished breath sounds Cardiovascular: regular rate and rhythm, No edema, No systolic murmur Gastrointestinal: non-tender, soft Extremities: normal pulses Neurological: nl mental status, nl speech Results Result Diagram: 06/28/17 0950 06/28/17 0950 Results 24 hrs Laboratory Tests Test 06/28/17 09:50 White Blood Count 8.1 Red Blood Count 4.58 L Hemoglobin 13.7 L Hematocrit 40.8 L Mean Corpuscular Volume 89.1 Mean Corpuscular Hemoglobin 29.9 Mean Corpuscular Hemoglobin Concent 33.6 Red Cell Distribution Width 11.9 Platelet Count 190 Mean Platelet Volume 9.7 Neutrophils % 53.1 Lymphocytes % 31.7 Monocytes % 8.6 Eosinophils % 5.6 Basophils % 0.9 Nucleated Red Blood Cells % 0.0 Neutrophils # (Manual) 4 Lymphocytes # 2.6 Monocytes # 0.7 Eosinophils # 0.5 Basophils # 0.1 Nucleated Red Blood Cells # 0.0 Sodium Level 135 Potassium Level 4.2 Chloride Level 101 Carbon Dioxide Level 25 Anion Gap 13 Blood Urea Nitrogen 18 Creatinine 1.08 Glucose Level 93 Calcium Level 9.4 Medications Medications Current Medications Acetaminophen/ Hydrocodone Bitart ([place] (5/325)) 1 tab Q6 PRN PO PAIN Last administered on 06/27/17 09:37; Admin Dose 1 TAB; Start 06/26/17 at 05:00 Nitroglycerin (Nitroglycerin (Sl Tab) 0.4 Mg) 1 tab Q5M PRN SL ANGINA Last administered on 06/26/17 12:49; Admin Dose 1 TAB; Start 06/26/17 at 10:30 Morphine Sulfate (morphine) 2 mg Q4H PRN IV pain Last administered on 21:39; Admin Dose 2 MG; Start 06/26/17 at 10:30 Heparin Sodium (Porcine) (Heparin (5000 Units/0.5 ml)) 5,000 unit BID SC Last administered on 06/28/17 08:53; Admin Dose 5,000 UNIT; Start 06/26/17 at 21:00 Aspirin (Aspirin) 81 mg DAILY PO Last administered on 06/28/17 08:45; Admin Dose 81 MG; Start 06/26/17 at 13:30 Metoprolol Tartrate (Lopressor) 25 mg BID PO Last administered on 06/28/17 08: 45; Admin Dose 25 MG; Start 06/26/17 at 13:30 Atorvastatin Calcium (Lipitor) 40 mg QHS PO Last administered on 06/27/17 21: 25; Admin Dose 40 MG; Start 06/26/17 at 21:00 Morphine Sulfate (morphine) 2 mg Q2H PRN IV FOR NON CARDIAC PAIN (4-10) Last administered on 06/27/17 08:53; Admin Dose 2 MG; Start 06/27/17 at 08:42 Ondansetron HCl (Zofran Inj) 4 mg Q4H PRN IV NAUSEA AND/OR VOMITING; Start at 09:00 JUANA DYKES Jun 28, 2017 11:23
--- NOTE | 2017-06-28 15:22 | DS ---
Date/Time of Note Date/Time of Note DATE: 06/28/17 TIME: 15:17 Discharge Summary Admission/Discharge Info Admit Date/Time Jun 26, 2017 at 02:43 Discharge Date/Time Jun 28, 2017 at 13:53 Discharge Diagnosis Chest pain, unstable angina. Status post cardiac cath 06/27 with negative iFR of intermediate OM lesion. Nonobstructive coronary artery disease. Hypertension Hyperlipidemia Tobacco use Patient Condition: Stable Consults , cardiology Procedures 06/27/2070. Left heart catheterization. Hospital Course This is a 61-year-old male with a past medical history hypertension, hyperlipidemia, current every day tobacco abuse, and noncompliance with his antihypertensives, who presented to the emergency room for evaluation of chest pain which has been going on for the past 3 days. Patient also had associated diaphoresis. Patient reported chest pain with exertion especially going up the stairs. Initial troponin was negative. His initial blood pressure was 164/98. Patient was treated with aspirin and a cardiology consultation was called. Patient was admitted to rule out ACS. Patient was evaluated by cardiology. Though troponins are negative, there was still concern for ACS and cardiac catheterization was warranted without stress testing to avoid false negatives. On 06/27/2017, patient had undergone cardiac catheterization with negative test results. Recommendation was continue aspirin , antihypertensive and statin and tobacco cessation. There was no further inpatient workup indicated per cardiology and patient is medically stable for discharge. Patient is also chest pain-free. He was also noted with a low vitamin D and supplementation was recommended. Patient also had A1c 6.4 and based on his high risk factors, he was recommended to start metformin upon discharge. Patient feels back to baseline and labs and vital signs within acceptable range. Patient verbalized discharge instructions. Disposition: Patient will be discharged home with outpatient follow-up. He was instructed to resume his home medications. Patient was given prescription for newly added medication. Approximately 60 minutes was spent on this on coordinating discharge on this patient. Case discussed with Dr. Ferro. Home Meds Active Scripts Cholecalciferol* (Vitamin D3*) 1,000 Unit Tablet, 2000 UNIT PO DAILY, #30 TAB Prov:CRESPO,ALEJANDRA [employer] 06/28/17 Hydrocodone/Acetaminophen ([place] 5-325 Tablet) 1 Each Tablet, 1 EACH PO Q6H for PAIN, #30 TAB Prov:CRESPO,[employer] 06/27/17 Metformin Hcl* (Metformin Hcl*) 1,000 Mg Tablet, 1000 MG PO WITH BREAKFAST DINNE , #60 TAB Prov:ALEJANDRA CRESPO [employer] 06/27/17 Aspirin (Aspirin) 81 Mg Chew, 81 MG PO DAILY, #30 TAB Prov:ALEJANDRA CRESPO [employer] 06/27/17 Metoprolol Tartrate* (Lopressor*) 25 Mg Tab, 25 MG PO BID, #60 TAB Prov:ALEJANDRA CRESPO [employer] 06/27/17 Atorvastatin* (Atorvastatin*) 40 Mg Tablet, 40 MG PO QHS, #30 TAB Prov:ALEJANDRA CRESPO [employer] 06/27/17 Follow-up Plan HOME CARE INSTRUCTIONS: Your diet recommendation is: CARBOHYDRATE-CONTROLLED /LOW CHOLESTEROL,LOW FAT DIET FOLLOW UP/APPOINTMENTS Follow-up Plan 1.Follow up with primary care physician in 1 week-NEEDS TO REPEAT THYROID TESTS IN 2-4 WEEKS If you don't have one please let someone know, we can give you resources that may help you pick one. You may also call your insurance company to assign one to you. Review your medication list with your nurse before leaving and if you need new prescriptions please let your nurse know. I may have made changes to your home medications or given you new prescriptions, please let your primary doctor know as well. Stay compliant with your medications and report any side effects to your PCP or pharmacist. Return to the ER if you have any concerns and cannot reach your doctors or call your insurance company, they usually have a nurse that can help you. 2. Call 911 or go to the nearest emergency room if experiencing loss of consciousness, dizziness, chest pain, shortness of breath, vomiting/abdominal pain, speech difficulties, motor weakness or any unusual symptoms. Primary Care Provider Care Physician No Primary Pending Labs Laboratory Tests Test 06/28/17 09:50 White Blood Count 8.110^3/ul (4.8-10.8) Red Blood Count 4.5810^6/ul (4.70-6.10) Hemoglobin 13.7g/dl (14.0-18.0) Hematocrit 40.8% (42.0-52.0) Mean Corpuscular Volume 89.1fl (82.0-101.0) Mean Corpuscular Hemoglobin 29.9pg (29.0-33.0) Mean Corpuscular Hemoglobin Concent 33.6g/dl (32.0-37.0) Red Cell Distribution Width 11.9% (11.5-14.5) Platelet Count 91202^3/UL (140-415) Mean Platelet Volume 9.7fl (7.4-10.4) Neutrophils % 53.1% (39.0-77.0) Lymphocytes % 31.7% (15.0-51.0) Monocytes % 8.6% (0.0-11.0) Eosinophils % 5.6% (0.0-7.0) Basophils % 0.9% (0.0-2.0) Nucleated Red Blood Cells % 0.0/100WBC (0.0-0.0) Neutrophils # (Manual) 410^3/ul (1.7-7.5) Lymphocytes # 2.610^3/ul (0.8-2.9) Monocytes # 0.710^3/ul (0.3-0.9) Eosinophils # 0.510^3/ul (0.0-0.5) Basophils # 0.110^3/ul (0.0-0.1) Nucleated Red Blood Cells # 0.010^3/ul (0.0-0.0) Sodium Level 135mmol/L (135-144) Potassium Level 4.2mmol/L (3.5-5.1) Chloride Level 101mmol/L (97-110) Carbon Dioxide Level 25mmol/L (21-31) Anion Gap 13 (8-16) Blood Urea Nitrogen 18mg/dl (7-20) Creatinine 1.08mg/dl (0.61-1.24) Glucose Level 93mg/dl (70-220) Calcium Level 9.4mg/dl (8.4-10.2) ALEJANDRA CRESPO NP Jun 28, 2017 15:21
--- NOTE | 2017-06-29 17:08 | RADRPT ---
Vent Rate: 67 bpm RR Interval: 0 msec [place] Interval: 136 msec QRS Duration: 92 msec QT Interval: 410 msec QTC Interval: 433 msec P-R-T [place]: 55 - 24 - 59 degrees Normal sinus rhythm Normal ECG Electronically Signed By: Manan Reyes [id number]
== END 2017-06-28 13:53 | disposition home or self-care (01) | DRG 287 ==
LOC: E/R 23:53 → MS3 06-26 02:43 → MS4 06-26 22:42
PROVIDERS: ADMIT Family Medicine; ATTEND Family Medicine
PROC: B2011ZZ Plain Radiography of Multiple Coronary Arteries using Low Osmolar Contrast (ICD-10-PCS; 2017-06-27)
PROC: 4A023N7 Measurement of Cardiac Sampling and Pressure, Left Heart, Percutaneous Approach (ICD-10-PCS; principal; 2017-06-27 07:30)
DX: I25.110 Atherosclerotic heart disease of native coronary artery with unstable angina pectoris (principal); I10 Essential (primary) hypertension; Z72.0 Tobacco use; E78.5 Hyperlipidemia, unspecified; M54.5 Low back pain; R20.0 Anesthesia of skin; Z82.49 Family history of ischemic heart disease and other diseases of the circulatory system
CPT/HCPCS: 36415; 71010; 72100; 80048; 80053; 80061; 80076; 82550; 82553; 82607; 82652; 83036; 83735; 83880; 84100; 84439; 84443; 84484; 85025; 85610; 85730; 93005; 93306; 93458; 93571; 96374; 96375; C1769; C1887; J1644; J2250; J2270; J2405; J3010; J7030; Q9967

== ENCOUNTER 2019-06-22 23:37 | Inpatient (IN) | payer MEDICAID, OTHER ==
[~2019-06-22] VITALS: Ht 167.6 cm; Wt 85.0 kg
[~2019-06-22 23:37] MED LIST: ASPI-817 PO; ASPI-831 PO; ATOR40TA68 PO; CHOL100062 PO; CIPR500T4 PO; GABA100C14 PO; HYDR-4011 PO; LACT1CAP57 PO; LOSA100T15 PO; METF100010 PO; METO-448 PO; METR500T PO; ONDA8TAB9 PO; OXYC-279 PO
[2019-06-22 23:47] VITALS: Ht 167.6 cm; Wt 85.0 kg
[2019-06-23] MEDS ORDERED: ONDANSETRON 4 MG INJ IV STA (00:07)
[2019-06-23] MEDS ORDERED: morphine 4 MG/ML VIAL IV STA (00:07)
[2019-06-23] MEDS ORDERED: SODIUM CHLORIDE 0.9% 1L BAG IV* STA (00:08)
[2019-06-23] MEDS: PIPER-TAZO 3.375 GM IV (PMX) 100 ML IVPB ONE ×2 (03:25→03:51)
[2019-06-23] MEDS ORDERED: ONDANSETRON 4 MG INJ IV PRN ×2 (04:30→06:00)
[2019-06-23] MEDS ORDERED: ACETAMINOPHEN 325 MG TAB PO PRN (04:30)
[2019-06-23] MEDS: SOD CHLORIDE 0.9% 1,000 ML IV SCH ×2 (06:10→16:39)
[2019-06-23] MEDS: morphine 4 MG/ML VIAL IV PRN ×3 (06:11→17:08)
[2019-06-23 07:48] VITALS: BP 110/65; PULSE 85; RESP 16
[2019-06-23] MEDS ORDERED: INSULIN ASPART [NOVOLOG] 3 ML PEN SC SCH (08:00)
[2019-06-23] MEDS: INSULIN ASPART [NOVOLOG] 3 ML PEN SC SCH ×4 (09:00→20:40)
[2019-06-23] MEDS: METOPROLOL 25 MG TAB PO SCH ×2 (09:00→20:37)
[2019-06-23] MEDS: FAMOTIDINE 20 MG INJ IV SCH ×2 (09:53→20:41)
[2019-06-23] MEDS: PIPER-TAZO 3.375 GM IV (PMX) 100 ML IVPB SCH ×2 (13:11→21:46)
[2019-06-23] MEDS ORDERED: GLUCOSE GEL 15 GRAM TUBE BUCCAL PRN (13:30)
[2019-06-23] MEDS ORDERED: DEXTROSE 50% 50 ML SYRINGE IV PRN ×2 (13:30)
[2019-06-23] MEDS ORDERED: GLUCOSE GEL 15 GRAM TUBE PO PRN ×2 (13:30)
[2019-06-23] MEDS ORDERED: GLUCAGON 1 MG INJ IM PRN (13:30)
[2019-06-23 13:44] VITALS: BP 115/70; PULSE 77; RESP 15
[2019-06-23 20:00] VITALS: BP 138/82; PULSE 73; RESP 18
[2019-06-24] MEDS: SOD CHLORIDE 0.9% 1,000 ML IV SCH ×3 (01:41→21:19)
[2019-06-24] MEDS ORDERED: ACETAMINOPHEN 325 MG TAB ONE (01:54)
[2019-06-24] MEDS ORDERED: ACCU-CHEK XX SCH (02:00)
[2019-06-24] MEDS: ACETAMINOPHEN 325 MG TAB PO PRN ×3 (02:00→21:08)
[2019-06-24 02:30] VITALS: BP 129/78; PULSE 96; RESP 18
[2019-06-24] MEDS: PIPER-TAZO 3.375 GM IV (PMX) 100 ML IVPB SCH ×3 (06:07→21:19)
[2019-06-24] MEDS: INSULIN ASPART [NOVOLOG] 3 ML PEN SC SCH ×4 (08:00→21:00)
[2019-06-24 08:26] VITALS: BP 124/82; PULSE 83; RESP 18
[2019-06-24] MEDS: METOPROLOL 25 MG TAB PO SCH ×2 (08:43→21:00)
[2019-06-24] MEDS: FAMOTIDINE 20 MG INJ IV SCH ×2 (08:43→20:59)
[2019-06-24 13:52] VITALS: BP 125/77; PULSE 78; RESP 20
[2019-06-24 20:00] VITALS: BP 154/81; PULSE 74; RESP 19
[2019-06-25] MEDS: SOD CHLORIDE 0.9% 1,000 ML IV SCH (01:50)
[2019-06-25] MEDS: ACETAMINOPHEN 325 MG TAB PO PRN ×2 (01:50→08:47)
[2019-06-25 05:02] VITALS: BP 155/90; PULSE 72; RESP 18
[2019-06-25] MEDS: PIPER-TAZO 3.375 GM IV (PMX) 100 ML IVPB SCH (05:17)
[2019-06-25 08:00] VITALS: BP 165/89; PULSE 81; RESP 16
[2019-06-25] MEDS: INSULIN ASPART [NOVOLOG] 3 ML PEN SC SCH ×4 (08:00→21:00)
[2019-06-25] MEDS: FAMOTIDINE 20 MG INJ IV SCH ×2 (08:40→21:18)
[2019-06-25] MEDS: METOPROLOL 25 MG TAB PO SCH ×2 (08:40→21:18)
[2019-06-25] MEDS ORDERED: LEVOFLOXACIN 750 MG TABLET PO SCH (11:00)
[2019-06-25 14:00] VITALS: BP 152/92; PULSE 75; RESP 14
[2019-06-25] MEDS: metroNIDAZOLE 500 MG TAB PO SCH ×2 (14:28→21:18)
[2019-06-25 20:20] VITALS: BP 134/89; PULSE 85; RESP 18
[2019-06-25] MEDS ORDERED: LACTOBACILLUS RHAMNOSUS CAP PO SCH (21:00)
== END 2019-06-25 21:53 | disposition home or self-care (01) | DRG 372 ==
LOC: FTE 23:37 → PP2 06-23 04:19
PROVIDERS: ADMIT Internal Medicine; ATTEND Internal Medicine
DX: K35.32 Acute appendicitis with perforation, localized peritonitis, and gangrene, without abscess (principal); N17.9 Acute kidney failure, unspecified; I12.9 Hypertensive chronic kidney disease with stage 1 through stage 4 chronic kidney disease, or unspecified chronic kidney disease; E11.22 Type 2 diabetes mellitus with diabetic chronic kidney disease; N18.3 Chronic kidney disease, stage 3 (moderate); Z72.0 Tobacco use
CPT/HCPCS: 36415; 74176; 80048; 80053; 81001; 82962; 83605; 83690; 84484; 85025; 85610; 85730; 87086; 93005; 96374; 96375; J1815; J2270; J2405; J2543; J7030

== ENCOUNTER 2019-07-11 01:46 | Inpatient (IN) | payer OTHER ==
[~2019-07-11] VITALS: Ht 167.6 cm; Wt 83.9 kg
[2019-07-11] MEDS ORDERED: morphine 4 MG/ML VIAL IV STA (04:21)
[2019-07-11] MEDS ORDERED: SOD CHLORIDE 0.9% 1,000 ML IV ONE (04:30)
[2019-07-11] MEDS ORDERED: ONDANSETRON 4 MG INJ IV STA (04:38)
[2019-07-11] MEDS ORDERED: ONDANSETRON 4 MG INJ IV PRN (08:30)
[2019-07-11] MEDS ORDERED: ACETAMINOPHEN 325 MG TAB PO PRN (08:30)
[2019-07-11] MEDS ORDERED: metroNIDAZOLE 500 MG/NS (PMX) 100 ML IVPB ONE (09:00)
[2019-07-11] MEDS ORDERED: CEFTRIAXONE 1 GM/50 ML (PMX) 50 ML IVPB ONE (09:00)
[2019-07-11] MEDS ORDERED: GABAPENTIN 100 MG CAP PO PRN (10:30)
[2019-07-11] MEDS: LOSARTAN 50 MG TAB PO SCH (10:48)
[2019-07-11] MEDS ORDERED: ZOLPIDEM 5 MG TAB PO PRN (11:00)
[2019-07-11] MEDS: METOPROLOL 25 MG TAB PO SCH ×2 (11:00→20:49)
[2019-07-11 11:30] VITALS: BP 137/81; PULSE 95; RESP 18
[2019-07-11] MEDS: morphine 2 MG INJ IV PRN (11:32)
[2019-07-11 11:40] VITALS: Ht 167.6 cm; Wt 83.9 kg
[2019-07-11 15:03] VITALS: BP 102/63; PULSE 103; RESP 18
[2019-07-11] MEDS: ONDANSETRON 4 MG INJ IV PRN (16:30)
[2019-07-11 19:48] VITALS: BP 134/74; PULSE 108; RESP 19
[2019-07-11] MEDS ORDERED: MELATONIN 5 MG TABLET PO PRN (20:00)
[2019-07-12 02:08] VITALS: BP 138/83; PULSE 93; RESP 18
[2019-07-12] MEDS: morphine 2 MG INJ IV PRN ×2 (02:40→23:24)
[2019-07-12 07:53] VITALS: BP 135/74; PULSE 78; RESP 18
[2019-07-12] MEDS: METOPROLOL 25 MG TAB PO SCH ×2 (08:08→21:06)
[2019-07-12] MEDS: LOSARTAN 50 MG TAB PO SCH (08:08)
[2019-07-12] MEDS: ONDANSETRON 4 MG INJ IV PRN ×2 (15:44→20:08)
[2019-07-12 16:32] VITALS: BP 127/73; PULSE 98; RESP 18
[2019-07-12 20:00] VITALS: BP 132/77; PULSE 96; RESP 20
[2019-07-13 01:45] VITALS: BP 121/66; PULSE 103; RESP 18
[2019-07-13 07:37] VITALS: BP 143/84; PULSE 100; RESP 20
[2019-07-13] MEDS: morphine 2 MG INJ IV PRN ×3 (07:50→21:26)
[2019-07-13] MEDS: ONDANSETRON 4 MG INJ IV PRN ×2 (08:38→18:16)
[2019-07-13] MEDS: LOSARTAN 50 MG TAB PO SCH (08:38)
[2019-07-13] MEDS: METOPROLOL 25 MG TAB PO SCH ×2 (08:39→21:20)
[2019-07-13 14:21] VITALS: BP 126/70; PULSE 103; RESP 19
[2019-07-13 19:34] VITALS: BP 120/81; PULSE 104; RESP 18
[2019-07-14] VITALS (11 sets, daily range): BP systolic 111–126; BP diastolic 68–72; PULSE 90–109; RESP 18–20
[2019-07-14] MEDS: morphine 2 MG INJ IV PRN ×3 (01:37→13:37)
[2019-07-14] MEDS: ONDANSETRON 4 MG INJ IV PRN ×3 (03:59→16:35)
[2019-07-14] MEDS ORDERED: morphine 2 MG INJ IV STA (04:01)
[2019-07-14] MEDS: LOSARTAN 50 MG TAB PO SCH (08:02)
[2019-07-14] MEDS: METOPROLOL 25 MG TAB PO SCH (08:03)
[2019-07-14] MEDS ORDERED: FENTAnyl 50 MCG/ML VIAL ONE (10:05)
[2019-07-14] MEDS ORDERED: LIDOCAINE 1% (MDV) 20 ML INJ ONE (10:05)
[2019-07-14] MEDS ORDERED: MIDAZOLAM 1 MG/ML 2 ML INJ ONE (10:05)
[2019-07-14] MEDS ORDERED: SOD CHLORIDE 0.9% 500 ML ONE (10:05)
[2019-07-14] MEDS ORDERED: ONDANSETRON 4 MG INJ ONE (10:25)
== END 2019-07-14 18:30 | disposition home or self-care (01) | DRG 825 ==
LOC: FTE 01:46 → 2NE 08:29
PROVIDERS: ADMIT Internal Medicine; ATTEND Internal Medicine
PROC: 07BH3ZX Excision of Right Inguinal Lymphatic, Percutaneous Approach, Diagnostic (ICD-10-PCS; principal; 2019-07-14)
DX: C85.15 Unspecified B-cell lymphoma, lymph nodes of inguinal region and lower limb (principal); F17.200 Nicotine dependence, unspecified, uncomplicated; N18.3 Chronic kidney disease, stage 3 (moderate); I12.9 Hypertensive chronic kidney disease with stage 1 through stage 4 chronic kidney disease, or unspecified chronic kidney disease; Z79.82 Long term (current) use of aspirin
CPT/HCPCS: 36415; 72148; 74176; 77012; 80053; 81001; 83690; 85025; 85610; 85730; 88307; 88313; 88341; 88342; 96374; 96375; J0696; J2250; J2270; J2405; J3010; J7030; J7040